=== PATIENT | female | born 1955 | race Caucasian/White ===

== ENCOUNTER 2019-06-28 07:58 | Day surgery (SDC) | payer OTHER ==
[2019-06-23 09:14] VITALS: BMI 19.8
[2019-06-28] MEDS ORDERED: PROPOFOL 20 ML ONE ×2 (08:15)
[2019-06-28] MEDS ORDERED: LIDOCAINE HCL/PF 2% SDV 5ML VIAL ONE (08:15)
[2019-06-28 09:23] VITALS: TEMP 98
[2019-06-28 09:51] VITALS: BP 112/72; PULSE 66
== END 2019-06-28 10:10 | disposition home or self-care (01) ==
LOC: FASU-ENDO 07:58
PROVIDERS: ATTEND Internal Medicine Gastroenterology
PROC: 0DJD8ZZ Inspection of Lower Intestinal Tract, Via Natural or Artificial Opening Endoscopic (ICD-10-PCS; principal; 2019-06-28 09:03)
DX: Z12.11 Encounter for screening for malignant neoplasm of colon (principal); Z83.71 Family history of colonic polyps